=== PATIENT | female | born 1995 | race Caucasian/White ===

== ENCOUNTER → 2024-05-03 08:30 | Outpatient (BNV) | payer OTHER, SELFPAY | PROVIDERS: Visit Provider Psychiatry & Neurology Psychiatry | DX: F33.1 Major depressive disorder, recurrent, moderate (principal); F80.89 Other developmental disorders of speech and language; F81.9 Developmental disorder of scholastic skills, unspecified; F41.3 Other mixed anxiety disorders; F43.9 Reaction to severe stress, unspecified; R41.840 Attention and concentration deficit | CPT/HCPCS: 99214 ==

== ENCOUNTER 2024-05-03 08:37 | Outpatient (REF) | payer OTHER, SELFPAY ==
--- NOTE | 2024-05-03 08:43 | ECG_ITS ---
Test Reason : ROUTINE EKG Blood Pressure : / mmHG Vent. Rate : 063 BPM Atrial Rate : 063 BPM P-R Int : 170 ms QRS Dur : 092 ms QT Int : 394 ms P-R-T Axes : 052 111 049 degrees QTc Int : 403 ms Normal sinus rhythm Right axis deviation Abnormal ECG No previous ECGs available Referred By: Kierra Nova Electronically Signed By:BEVERLEY COSTELLO
[2024-05-03 09:06] LABS: MANUAL DIFF FLAG NO
[2024-05-03 09:09] LABS: Basophils Percent Auto 0.5 % (0-2); Eosinophils Absolute Auto 0.2 X10*3/uL (0.0-0.4); Eosinophils Percent Auto 3.3 % (0-4); Hemoglobin 12.6 g/dl (12.0-16.0); Imm Gran Abs Auto 0.02 X10*3/uL (0.00-0.03); Imm Gran Pct Auto 0.3 % (0.0-0.4); Lymphocytes Absolute Auto 1.3 X10*3/uL (1.2-4.9); Lymphocytes Percent Auto 22.8 % (20-40); Mean Corpuscular HGB Conc 32.3 g/dl (31.0-35.0); Mean Corpuscular Volume 80.4 fL (80.0-98.0); Mean Platelet Volume 10.2 fL (9.4-12.3); Monocytes Absolute Auto 0.6 X10*3/uL (0.1-1.2); Monocytes Percent Auto 9.8 % (2-11); Neutrophils Absolute Auto 3.7 x10*3/uL (2.0-8.3); Neutrophils Percent Auto 63.3 % (45-73); Platelet Count 249 X10*3/uL (160-400); Red Blood Count 4.85 X10*6/uL (4.20-5.50); Red Cell Distribution Width 14.7 % (11.0-16.0); White Blood Count 5.8 X10*3/uL (4.8-10.8)
[2024-05-03 09:34] LABS: Estimated Average Glucose 97 mg/dL; Hemoglobin A1C 99.4155 umol/L
[2024-05-03 09:37] LABS: Albumin Level 3.9 g/dL (3.5-5.0); Anion Gap 10 (12-20); Aspartate Amino Transferase 19 U/L (5-31); Bilirubin Total 0.4 mg/dL (0.0-1.0); Blood Urea Nitrogen 11 mg/dL (9-16); C Reactive Protein 3.35 mg/dL (< or = 0.50); Carbon Dioxide 27 mmol/L (22-29); Chloride 111 mmol/L (96-108); Cholesterol 158 mg/dL (<200); Estimated Glomerular Filt Rate > 60; Glucose Random 71 mg/dL (60-115); Iron 28 mcg/dL (30-160); Percent Iron Saturation 10 % (15-50); Potassium 3.4 mmol/L (3.3-5.1); Sodium 145 mmol/L (135-145); Total Iron Binding Capacity 278 mcg/dL (228-428); Total Protein 7.1 g/dL (6.5-8.0); Unsaturated Iron Binding 250 ug/dL
[2024-05-03 09:50] LABS: Ferritin 39 ng/mL (10-122); Free T4 (Free Thyroxine) 0.92 ng/dL (0.71-1.85); Thyroid Stimulating Hormone 2.08 uIU/mL (0.32-4.0); Vitamin D 25-OH Total 21.7 ng/mL (>30)
[2024-05-03 10:03] LABS: Erythrocyte Sedimentation Rate 18 MM/HR (0-20)
[2024-05-03 10:05] LABS: Folate 8.2 ng/mL (> or = 4.0); Vitamin B12 440 pg/mL (200-900)
[2024-05-03 10:16] LABS: Alanine Aminotransferase 18 U/L (0-31); Alkaline Phosphatase 71 U/L (39-117)
[2024-05-06 20:07] LABS: Homocysteine 9.4 umol/L (<10.4)
[2024-05-09 13:58] LABS: Vitamin B6 6.8 ng/mL (2.1-21.7)
[2024-05-10 16:49] LABS: Vitamin B1 11 nmol/L (8-30)
== END 2024-05-03 08:38 | disposition home or self-care (01) ==
LOC: HO.LAB 08:37
PROVIDERS: Visit Provider Psychiatry & Neurology Psychiatry
DX: F33.1 Major depressive disorder, recurrent, moderate (principal); F43.9 Reaction to severe stress, unspecified
CPT/HCPCS: 36415; 80053; 82306; 82465; 82607; 82728; 82746; 83036; 83090; 83540; 83735; 84207; 84425; 84439; 84443; 85025; 85652; 86140; 93005

== ENCOUNTER → 2024-05-03 08:43 | Outpatient (BNV) | payer OTHER, SELFPAY | PROVIDERS: Visit Provider Internal Medicine | DX: R94.31 Abnormal electrocardiogram [ECG] [EKG] (principal) | CPT/HCPCS: 93010 ==

== ENCOUNTER 2024-05-09 09:33 | Emergency (ER) | payer OTHER, SELFPAY ==
--- NOTE | ~2024-05-09 | XR_ITS ---
EXAMINATION: XR CHEST CLINICAL INFORMATION: cough COMPARISON: None available. TECHNIQUE: 2 views of the chest were obtained. FINDINGS: No significant abnormality is noted involving the heart, lungs, mediastinum, bony thorax or soft tissues. XR/XR chest 2V IMPRESSION: No acute cardiopulmonary disease. Electronically signed by: Donato Payne MD 05/09/2024 11:19 AM [facility] [place]
--- NOTE | 2024-05-09 09:42 | ECG_ITS ---
Test Reason : cp Blood Pressure : / mmHG Vent. Rate : 075 BPM Atrial Rate : 075 BPM P-R Int : 164 ms QRS Dur : 084 ms QT Int : 374 ms P-R-T Axes : 057 101 044 degrees QTc Int : 417 ms Normal sinus rhythm Rightward axis Borderline ECG When compared with ECG of 03-MAY-2024 08:44, No significant change was found Referred By: Generic ED Physician Electronically Signed By:Jose Qureshi
[2024-05-09 10:06] VITALS: BP 104/69; PULSE 71; RESP 16; TEMP 36.6; O2SAT 96; BMI 33.5
[2024-05-09 10:43] LABS: IDNOW Serial# 08D9AD1C; Strep A Nucleic Acid Negative (Negative)
--- NOTE | 2024-05-09 11:03 | ED.URI ---
HPI - URI/Sore Throat General Chief Complaint: Upper Respiratory Symptoms Stated Complaint: chest pain Time Seen by Provider: 05/09/24 10:34 Source: patient and RN notes reviewed Mode of arrival: ambulatory Limitations: no limitations History of Present Illness ED Provider: Masha Scott PA-C HPI Narrative: This is a 28-year-old female, with a history of develop mental speech delay, learning disability, ADHD, and MDD, who presents emergency department with complaints of sinus pain, cough, congestion, and chest pain x1 week. Patient states that over the last week, she has developed postnasal drip, congestion, dry cough, and chest pain which only occurs with cough. Patient denies any recent fevers or chills. She states that she had a sinus infection several months ago in symptoms feel similar. She denies any abdominal pain, nausea, vomiting or diarrhea. No shortness a breath or palpitations. No recent travel, surgeries, history of blood clots. She is not on control. She states that she was admitted psychiatrically in February, no other medical hospitalizations. No other complaints or concerns at this time. MD elicited complaint: cough, sore throat, rhinorrhea, nasal congestion and sinus pain Pertinent past history: sinusitis Onset (ago): week(s) Consistency: constant Severity: moderate Able to tolerate fluids by mouth: Yes Exacerbating factors: nothing Relieving factors: nothing Associated symptoms: nasal congestion, sore throat, cough and chest pain Treatments prior to arrival: none Related Data Home Medications ?Medication ?Instructions ?Recorded ?Confirmed albuterol sulfate 90 mcg/actuation 1 puff inhalation QID PRN sob 04/25/24 04/25/24 aerosol inhaler (Ventolin HFA) cetirizine 10 mg tablet (Zyrtec) 10 mg PO DAILY 04/25/24 04/25/24 propranolol 20 mg tablet 20 mg PO DAILY 04/25/24 04/25/24 sertraline 50 mg tablet 50 mg PO DAILY 04/25/24 04/25/24 Previous Rx's ?Medication ?Instructions ?Recorded methylphenidate HCl 5 mg tablet 5 mg PO QAM as directed #14 tabs 05/03/24 prazosin 1 mg capsule 1 mg PO BEDTIME as directed #14 05/03/24 caps amoxicillin 875 mg-potassium 1 tab PO BID 7 days #14 tabs 05/09/24 clavulanate 125 mg tablet Allergies Allergy/AdvReac Type Severity Reaction Status Date / Time No Known Allergies Allergy Verified 05/09/24 10:09 [No Known Allergies*] Review of Systems Review of Systems: Yes all other systems are reviewed and are negative Constitutional: Constitutional: Reports as per [facility] Past Medical History Medical History Astigmatism of eye Myopia of both eyes Speech disorder Learning disability Social History Social History Household Members: Family Patient Tobacco Use Status: Never used Tobacco Advance Directives: No Advance Directives Information Provided: No Physical Exam Vital Signs: Vital Signs: Last Vital Signs Temp 97.9 F 05/09/24 10:06 Pulse 71 05/09/24 10:06 Resp 16 05/09/24 10:06 BP 104/69 05/09/24 10:06 Pulse Ox 96 05/09/24 10:06 O2 Del Method Room Air 05/09/24 10:06 BMI result Body Mass Index 33.5 Const: General: cooperative, comfortable and no acute distress Orientation/consciousness: patient oriented x3 Limitations: no limitations HEENT: Other: Maxillary sinus tenderness on examination. No ethmoid, or frontal sinus tenderness. Head: Yes normal to inspection, Yes normocephalic and Yes atraumatic Ears: hearing grossly normal bilaterally and TM's normal bilaterally General nose exam: Normal external nose present Face and sinus: Yes normal facial exam Mouth: Normal oral and palatal mucosa present, oropharynx normal and moist mucous membranes Throat: Yes posterior oropharynx normal Eyes: General: appearance normal, both eyes and all related structures Eyelids: Yes eyelids normal Conjunctivae: conjunctivae normal Sclerae: sclerae normal Pupils: Equal, round and reactive pupils present EOM: EOMs intact bilaterally Neck: Neck: Yes normal visual inspection, Yes full ROM and Yes no lymphadenopathy Lymphatic: no lymphadenopathy noted Chest: Other: Reproducible chest wall tenderness on examination. Chest palpation & inspection: normal inspection of the chest Resp: Effort & Inspection: normal respiratory effort and able to speak in complete sentences Auscultation: clear to auscultation bilaterally, no crackles, no rales, no rhonchi and no wheezes Cardio: Rate: regular rate Rhythm: regular rhythm Heart sounds: S1 normal heart sound present and S2 normal heart sound present GI: Inspection: Yes normal to inspection Skin: General skin exam: no rashes or lesions noted Trauma: no lacerations or abrasions Wounds: no wounds Neuro: General: patient oriented x3 and moves all extremities Cranial nerves: Yes Equal, round and reactive pupils present Extrem: General: Yes normal to inspection Right upper extremity: normal to inspection Left upper extremity: normal to inspection Right lower extremity: normal to inspection Left lower extremity: normal to inspection Course Reevaluation(s) Reevaluation #1: Patient negative for RSV, COVID, flu, and strep throat. Chest x-ray unremarkable. Discussed findings with patient. She does have maxillary sinus tenderness on examination, symptoms have been longer than 1 week, will treat as a sinusitis. Patient stable for discharge. Given strict return precautions. Time: 11:27 Medical Decision Making Medical Decision Making [facility] Narrative: This is a 28-year-old female who presents emergency department with complaints of congestion, cough, sinus pain x1 week. On arrival, vital signs within normal limits. She is speaking full sentences under no acute distress. Lungs are clear to auscultation bilaterally. She has reproducible chest wall tenderness on examination. She is PERC negative. She is not hypoxic or tachycardic. She has tenderness palpation along her maxillary sinuses. Plan: Viral swabs, COVID, strep, EKG that was previously ordered by triage. Chest x-ray, Tylenol Differential Diagnosis Differential Diagnoses: The differential diagnosis associated with the presentation includes RSV, COVID, strep, influenza, sinusitis, pneumonia Admission/Observation Consideration of admission/observation: Escalation of care including admission/observation considered Lab Data [facility] Lab Attestation statement: I reviewed the patient's lab results. Negative COVID, flu, RSV, strep Labs: Lab Results 05/09/24 Range/Units 10:22 Influenza Type A (PCR) NEGATIVE (Negative) Influenza Type B (PCR) NEGATIVE (Negative) RSV RNA Qual (PCR) NEGATIVE (Negative) SARS-CoV-2 RNA (RT-PCR) NEGATIVE (Negative) S. pyogenes GrpA CHARLIE Negative (Negative) Radiology Impression Discussion of test interpretation with radiology: I have reviewed the radiologist's reading. Radiologist Impression: EKG normal sinus rhythm at a ventricular rate of 75 beats per minute, LA interval 164, QT QTC 374/foreign 17, no ST elevation or depression. Discharge Plan Discharge Clinical Impression: Sinusitis Patient Disposition: Home, Self-Care Instructions: Sinusitis (ED) Additional Instructions: You were seen in the emergency department due to congestion, cough. Your chest x-ray was normal. Your EKG was normal. You have evidence of a sinus infection, please take prescribed medication as directed. Finish the entire course even if your symptoms improve. Alternate between ibuprofen and Tylenol as needed for pain and symptoms. Drink plenty of fluids get plenty of rest. Follow-up with your primary care physician regarding this visit. If any new or worsening symptoms occur including but not limited to worsening chest pain, shortness of breath, please seek emergent care. Prescriptions: New amoxicillin-pot clavulanate 875-125 mg tablet 1 tab PO BID 7 Days Qty: 14 0RF No Action cetirizine [Zyrtec] 10 mg Tablet 10 mg PO DAILY Rx Instructions: Takes OTC albuterol sulfate [Ventolin HFA] 90 mcg/actuation Hfa Aerosol Inhaler 1 puff INHALATION QID PRN (Reason: sob) Rx Instructions: Last Filled November 2023 propranolol 20 mg Tablet 20 mg PO DAILY Rx Instructions: Last Filled 04/05/24. Increased from 10 mg daily. sertraline 50 mg Tablet 50 mg PO DAILY Rx Instructions: Last filled 04/05/24 #90. prazosin 1 mg capsule 1 mg PO BEDTIME Qty: 14 0RF methylphenidate HCl 5 mg tablet 5 mg PO QAM Qty: 14 0RF Rx Instructions: Partial Fill upon patient request. Print Language: Luxembourgish
[2024-05-09 11:09] LABS: Influenza A PCR NEGATIVE (Negative); Influenza B PCR NEGATIVE (Negative); Resp Syncy Virus RNA Qual PCR NEGATIVE (Negative); SARS COV2 PCR INHOUSE NEGATIVE (Negative)
[2024-05-09 11:50] VITALS: BP 104/69; PULSE 71; RESP 16; TEMP 36.6; O2SAT 96
== END 2024-05-09 11:50 | disposition home or self-care (01) ==
PROVIDERS: Emergency Provider Emergency Medicine; PCP Student in an Organized Health Care Education/Training Program
DX: J32.0 Chronic maxillary sinusitis (principal); R05.9 Cough, unspecified; J02.9 Acute pharyngitis, unspecified; R07.9 Chest pain, unspecified; Z03.818 Encounter for observation for suspected exposure to other biological agents ruled out
CPT/HCPCS: 0241U; 71046; 87651; 93005; 99283

== ENCOUNTER → 2024-05-09 09:42 | Outpatient (BNV) | payer OTHER, SELFPAY | PROVIDERS: Emergency Provider Emergency Medicine; PCP Student in an Organized Health Care Education/Training Program; Visit Provider Internal Medicine Cardiovascular Disease | DX: R94.31 Abnormal electrocardiogram [ECG] [EKG] (principal) | CPT/HCPCS: 93010 ==

== ENCOUNTER 2024-05-14 09:15 | Outpatient (RCR) | payer OTHER, SELFPAY ==
[2024-04-25 09:58] VITALS: BMI 33.0
[2024-04-25 10:00] VITALS: BP 88/66; TEMP 36.7
--- NOTE | 2024-04-25 16:59 | HO.PHP ---
Client's case was reviewed and opened in teams.
--- NOTE | 2024-04-25 21:51 | HO.PS.ADMBH ---
HPI Date of Service: 04/25/24 Chief Complaint: PTSD Sources of Information: patient interviewed, chart reviewed and crisis/core team assessment reviewed HPI Narrative: Patient is a 28 yo female with depression and anxiety. who was referred from Crisis. SHe reports recent IPLOC later followed by respite stay (which she found more helpful than being in the hospital). She was started on clonidine at respite which has been helping with sleep. 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 Learning disability Narrative: Micrognathia Diagnostics Vital Signs (24Hr): Vital Signs - 24 hr 04/25/24 10:00 Temperature 98.1 F Blood Pressure 88/66 L BMI result Body Mass Index 33.0 Meds/Allergies Meds Home Medications ?Medication ?Instructions ?Recorded ?Confirmed ?Type albuterol sulfate 90 mcg/actuation 1 puff inhalation QID PRN sob 04/25/24 04/25/24 History aerosol inhaler (Ventolin HFA) cetirizine 10 mg tablet (Zyrtec) 10 mg PO DAILY 04/25/24 04/25/24 History propranolol 20 mg tablet 20 mg PO DAILY 04/25/24 04/25/24 History Allergies Allergies Allergy/AdvReac Type Severity Reaction Status Date / Time No Known Allergies Allergy Verified 05/09/24 10:09 [No Known Allergies*] Mental Status Exam Mental Status Exam Narrative: MSEAlert, oriented, in no acute distress. Calm, cooperative, engaged. No psychomotor agitation or neurovegetative retardation. Eye contact maintained. Mood depressed, affect dysthymic, blunted without tearfulness or lability. Speech normal, soft, flat without slowing. Thought process linear, coherent, delay in some responses. Thought content related to stressors, +transient hopelessness, +passive SI, denies any intention, urge or plan to harm self. Denies any aggressive ideation or HI. No paranoia or delusional content elicited. No evidence of psychosis. Insight and judgment fair. Assessment & Plan Assessment & Plan (1) MDD (major depressive disorder), recurrent episode, moderate: Status: Acute Code(s): F33.1 - Major depressive disorder, recurrent, moderate (2) Developmental disorder of speech fluency: Status: Acute Code(s): F80.89 - Other developmental disorders of speech and language (3) Learning disability: Status: Acute Code(s): F81.9 - Developmental disorder of scholastic skills, unspecified (4) Other mixed anxiety disorders: Status: Acute Code(s): F41.3 - Other mixed anxiety disorders Assessment and Plan: generalized anxiety, social anxiety (5) Reaction to severe stress, unspecified: Status: Acute Code(s): F43.9 - Reaction to severe stress, unspecified Assessment and Plan: unspecified trauma and stressor-related disorder r/o PTSD (6) Attention and concentration deficit: Status: Acute Code(s): R41.840 - Attention and concentration deficit Assessment and Plan: r/o neurocognitive or developmental disorders (specifically ADHD-inattentive type) (7) Attention-deficit hyperactivity disorder, unspecified type: Status: Acute Code(s): F90.9 - Attention-deficit hyperactivity disorder, unspecified type Plan continue other regular medications? Routine lab work ordered as indicated EKG, routine for baseline QTc for medication considerations as indicated UDS as indicated MassPat reviewed Continue to monitor as per protocol Patient educated on: diagnosis and medication risk/benefits Informed Consent: understands Reason for continued partial hosp. stay Substantial Risk for: inability to function and med/psych decompensation Certification I certify that partial hospital treatment is medically necessary due to the symptoms and problems resulting from the patient's mental illness and the failure to treat the patient at the partial hospital level of care would likely result in the patient requiring inpatient psychiatric care which could not be prevented at a less intensive level of care. Time Spent With Patient Time: Total time managing care of this patient today __60__ minutes.
--- NOTE | 2024-04-30 14:52 | HO.PHP ---
At roughly 2:00pm pt reported to scientific technical writer that her bottle of Klonopin with 12 pills inside had been taken from her personal bag. Pt stated she was certain it was in her bag and reported she brought the bottle in to show the doctor which medications and doses she was taking. Pt stated she had not left the bag unattended except to get a bottle of water from the fridge but stated the bag was still in the same room on her chair several feet away her. Pt was worried and anxious over the missing medications, stated the Klonopin is for panic attacks and not daily. Pt reassured the team will be notified.
--- NOTE | 2024-05-03 12:25 | HO.PHPPROGNO ---
Subjective Subjective Date of Service: 05/03/24 Reason For Visit: PTSD Interim History: Patient seen for follow-up. I feel calm today SHe is not sure why it seems there are times she is anxious and sometimes not. Overall feeling stable emotionally and at psychiatric baseline. Nonethless she continues to report issues with articulating her thoughts, says her mind also races and makes it difficult to articulate her thoughts, in addition with speech problems. Returned dose of clonidine to 0.1 mg because 1/2 tablet was no helpl for sleep, whereas she is able to sleep on the whole tablet. However she is still finding clonidine 0.1 mg makes her feel dizzy upon waking or getting up and would like to try prazosin as we had previously as well as start low dose methylphenidate. Will see if it is any help for cognitive and organizing her thoughts better. She continues on propranolol 20 mg daily in AM. Will start vitamin d supplementation for deficiency (21.7) Medication Compliance: Yes Side effects from medications: Yes Attending Groups: Yes Review of Systems Acute medical concerns: No Mental Status Exam Mental Status Exam Narrative: Alert, oriented, in no acute distress. Calm, cooperative, engaged, pleasant. Eye contact intermitten. Mood anxious, less depressed, affect more range of affect, without tearfulness or lability. Speech some delays ntoed due to disruption in fluency Thought process linear, coherent. Thought content related to stressors, issues with attention/focus, denies any hopelessness or passive SI, denies any intention, urge or plan to harm self. Denies any aggressive ideation or HI. No paranoia or delusional content elicited. No evidence of psychosis. Insight and judgment fair-good. Diagnostics Vital Signs (24Hr): BMI result Body Mass Index 33.0 Assessment & Plan Assessment & Plan (1) MDD (major depressive disorder), recurrent episode, moderate: Status: Acute Code(s): F33.1 - Major depressive disorder, recurrent, moderate (2) Developmental disorder of speech fluency: Status: Acute Code(s): F80.89 - Other developmental disorders of speech and language (3) Learning disability: Status: Acute Code(s): F81.9 - Developmental disorder of scholastic skills, unspecified (4) Other mixed anxiety disorders: Status: Acute Code(s): F41.3 - Other mixed anxiety disorders Assessment and Plan: generalized anxiety, social anxiety (5) Reaction to severe stress, unspecified: Status: Acute Code(s): F43.9 - Reaction to severe stress, unspecified Assessment and Plan: unspecified trauma and stressor-related disorder r/o PTSD (6) Attention and concentration deficit: Status: Acute Code(s): R41.840 - Attention and concentration deficit Assessment and Plan: r/o neurocognitive or developmental disorders (specifically ADHD-inattentive type) Plan hold clonidine start prazosin 1 mg qhs start methylphenidate 2.5-5 mg qam as tolerated continue sertraline 50 mg qd continue propranolol 20 mg qam start vitamin D2 69528 IU qd continue other regular medications?- cetirizine Routine lab work reviewed: vitamin D 21.7 EKG, routine for baseline QTc for medication considerations as indicated UDS as indicated VS: on admission 04/25/24, BP 88/66 (on propranolol 20 mg qam/clonidine 0.1 mg qhs); Continue to monitor Patient educated on: diagnosis, medication risk/benefits and medical condition Informed Consent: understands Reason for contiued partial hosp. stay Substantial Risk for: inability to function and med/psych decompensation Certification I certify that partial hospital treatment is medically necessary due to the symptoms and problems resulting from the patient's mental illness and the failure to treat the patient at the partial hospital level of care would likely result in the patient requiring inpatient psychiatric care which could not be prevented at a less intensive level of care. Total time managing care of this patient today _30___ minutes. Discharge Plan Discharge Attending provider: Kierra Nova Medications: New prazosin 1 mg capsule 1 mg PO BEDTIME Qty: 14 0RF methylphenidate HCl 5 mg tablet 5 mg PO QAM Qty: 14 0RF Rx Instructions: Partial Fill upon patient request. Continued cetirizine [Zyrtec] 10 mg Tablet 10 mg PO DAILY Rx Instructions: Takes OTC albuterol sulfate [Ventolin HFA] 90 mcg/actuation Hfa Aerosol Inhaler 1 puff INHALATION QID PRN (Reason: sob) Rx Instructions: Last Filled November 2023 propranolol 20 mg Tablet 20 mg PO DAILY Rx Instructions: Last Filled 04/05/24. Increased from 10 mg daily. sertraline 50 mg Tablet 50 mg PO DAILY Rx Instructions: Last filled 04/05/24 #90. Discontinued clonidine HCl 0.1 mg Tablet 0.1 mg PO BEDTIME Rx Instructions: Patient stated she started Clonidine in Respite. Print Language: Japanese
--- NOTE | 2024-05-09 09:41 | PC.NURSE ---
Najma c/o chest pain rated an 8 on a scale of 1-10 with 10 being the highest. She was crying d/t c/o chest pain. Reports she has been having chest pain for hours. VS BP 116/80 P 80. She denied it radiating. She also c/o having a sinus infection. Patient agreed to go to the ER for evaluation. Patient escorted to the ER without incident.
--- NOTE | 2024-05-10 23:59 | HO.PHPPROGNO ---
Subjective Subjective Date of Service: 05/10/24 Reason For Visit: PTSD Interim History: Patient seen for follow up. Went to ED yesterday, feeling unwell, has been prescribed antibiotic for sinus infection which she was unable to curing [employer] yesterday bc she is without a car/ride. She plans to get a ride to curing [employer] packer the medication after program and start on today. She is feeling a little better since taking some ibuprofen. Denies any chills or fever. 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 Aside from illness, mood has been more stable, anxiety better. Has been doing better with the prazosin, is better tolerated thatn HS clonidine which was making her wake-up dizzy. She denies any lightheadedness or adverse effects from HS prazosin 1 mg. She continues on propranolol 20 mg qam which she feels works well. BP runs low, but is asymptomatic. Hopefully will tolerate and benefit from addition of low dose IR stimulant in the AM, but advised to hold off starting until she is feeling better, and should focus on recovering from sinus infection, getting rest, staying hydrated in the meantime. Mood is stable, anxiety situational, recently noticing more anxiety as she approaches return to work date, she requests RTW date 05/21. SHe has a training module that needs to be completed which can be difficult to complete in a timely manner citing LD and speech d/o. Anticipitory anxiety about returning to work and feeling conflicted about returning especially bc my employer has not been very supportive in genereal (eg work accommodations, time off for PHP, etc) Endorses transient SIB thoughts, but says they are just thoughts and has no plan, or intent to harm self. Denies any SI. No HI . [place] paperwork was completed and sent in. Patient requested work letters, which were provided and sent to administrative staff to be printed up on letterhead and given to patient. Medication Compliance: Yes (except was unable to get to pharmacy to curing pickling packer new med) Side effects from medications: No Attending Groups: Yes Review of Systems Acute medical concerns: No Medical Review of Systems: changed Review of Systems: sinus infection Mental Status Exam Mental Status Exam Narrative: Alert, oriented, in no acute distress. Calm, cooperative, engaged, pleasant. Eye contact intermitten. Mood anxious, less depressed, affect more range of affect, without tearfulness or lability. Speech some delays ntoed due to disruption in fluency Thought process linear, coherent. Thought content related to stressors, issues with attention/focus, vague, transient SIB thoughts attributed to increased anticipitory stress about returning to work and feeling unsupported and overwhelmed in that environment. Denies any hopelessness or passive SI, denies any intention, urge or plan to harm self. Denies any aggressive ideation or HI. No paranoia or delusional content elicited. No evidence of psychosis. Insight and judgment fair-good. Diagnostics Vital Signs (24Hr): BMI result Body Mass Index 33.0 Assessment & Plan Assessment & Plan (1) MDD (major depressive disorder), recurrent episode, moderate: Status: Acute Code(s): F33.1 - Major depressive disorder, recurrent, moderate (2) Developmental disorder of speech fluency: Status: Acute Code(s): F80.89 - Other developmental disorders of speech and language (3) Learning disability: Status: Acute Code(s): F81.9 - Developmental disorder of scholastic skills, unspecified (4) Other mixed anxiety disorders: Status: Acute Code(s): F41.3 - Other mixed anxiety disorders Assessment and Plan: generalized anxiety, social anxiety (5) Reaction to severe stress, unspecified: Status: Acute Code(s): F43.9 - Reaction to severe stress, unspecified Assessment and Plan: unspecified trauma and stressor-related disorder r/o PTSD (6) Attention and concentration deficit: Status: Acute Code(s): R41.840 - Attention and concentration deficit Assessment and Plan: r/o neurocognitive or developmental disorders (specifically ADHD-inattentive type) Plan continue prazosin 1 mg qhs hold off start methylphenidate 2.5-5 mg qam until feeling better continue sertraline 50 mg qd continue propranolol 20 mg qam continue vitamin D2 03484 IU qd continue other regular medications?- cetirizine Discontinued: clonidine, Routine lab work reviewed: vitamin D 21.7 EKG, routine for baseline QTc for medication considerations as indicated [facility] paperwork completed, patient provided with requested letters confirming participation in PHP and Return to Work letter Continue to monitor Patient educated on: diagnosis and medication risk/benefits Informed Consent: understands Certification I certify that partial hospital treatment is medically necessary due to the symptoms and problems resulting from the patient's mental illness and the failure to treat the patient at the partial hospital level of care would likely result in the patient requiring inpatient psychiatric care which could not be prevented at a less intensive level of care. Total time managing care of this patient today _50___ minutes. Discharge Plan Discharge Attending provider: Kierra Nova Medications: New prazosin 1 mg capsule 1 mg PO BEDTIME Qty: 14 0RF methylphenidate HCl 5 mg tablet 5 mg PO QAM Qty: 14 0RF Rx Instructions: Partial Fill upon patient request. Continued cetirizine [Zyrtec] 10 mg Tablet 10 mg PO DAILY Rx Instructions: Takes OTC albuterol sulfate [Ventolin HFA] 90 mcg/actuation Hfa Aerosol Inhaler 1 puff INHALATION QID PRN (Reason: sob) Rx Instructions: Last Filled November 2023 propranolol 20 mg Tablet 20 mg PO DAILY Rx Instructions: Last Filled 04/05/24. Increased from 10 mg daily. sertraline 50 mg Tablet 50 mg PO DAILY Rx Instructions: Last filled 04/05/24 #90. amoxicillin-pot clavulanate 875-125 mg tablet 1 tab PO BID 7 Days Qty: 14 0RF Discontinued clonidine HCl 0.1 mg Tablet 0.1 mg PO BEDTIME Rx Instructions: Patient stated she started Clonidine in Respite. Print Language: Polish
--- NOTE | 2024-05-13 12:59 | P.PNPSP_ITS ---
Subjective Subjective Date of Service: 05/13/24 Reason For Visit: PTSD Mental Status Exam Mental Status Exam Narrative: Alert, oriented, in no acute distress. Calm, cooperative, engaged, pleasant. Eye contact intermitten. Mood anxious, less depressed, affect more range of affect, without tearfulness or lability. Speech some delays ntoed due to disruption in fluency Thought process linear, coherent. Thought content related to stressors, issues with attention/focus, vague, transient SIB thoughts attributed to increased anticipitory stress about returning to work and feeling unsupported and overwhelmed in that environment. Denies any hopelessness or passive SI, denies any intention, urge or plan to harm self. Denies any aggressive ideation or HI. No paranoia or delusional content elicited. No evidence of psychosis. Insight and judgment fair-good. Diagnostics Vital Signs (24Hr): BMI result Body Mass Index 33.0 Assessment & Plan Assessment & Plan (1) MDD (major depressive disorder), recurrent episode, moderate: Status: Acute Code(s): F33.1 - Major depressive disorder, recurrent, moderate (2) Developmental disorder of speech fluency: Status: Acute Code(s): F80.89 - Other developmental disorders of speech and language (3) Learning disability: Status: Acute Code(s): F81.9 - Developmental disorder of scholastic skills, unspecified (4) Other mixed anxiety disorders: Status: Acute Code(s): F41.3 - Other mixed anxiety disorders Assessment and Plan: generalized anxiety, social anxiety (5) Reaction to severe stress, unspecified: Status: Acute Code(s): F43.9 - Reaction to severe stress, unspecified Assessment and Plan: unspecified trauma and stressor-related disorder r/o PTSD (6) Attention-deficit hyperactivity disorder, unspecified type: Status: Acute Code(s): F90.9 - Attention-deficit hyperactivity disorder, unspecified type Plan start methylphenidate 5 mg qam (start 1/2 - 1 tablet) as tolerated increase sertraline to 75 mg qd continue propranolol 20 mg qam continue prazosin 1 mg qhs continue vitamin D2 00197 IU qd continue other regular medications?- cetirizine Discontinued: clonidine, Routine lab work reviewed: vitamin D 21.7 EKG, routine for baseline QTc for medication considerations as indicated [place] paperwork completed, patient provided with requested letters confirming participation in PHP and Return to Work letter Continue to monitor Patient educated on: diagnosis and medication risk/benefits Informed Consent: understands Reason for contiued partial hosp. stay Substantial Risk for: inability to function, rapid decompensation and med/psych decompensation Certification I certify that partial hospital treatment is medically necessary due to the symptoms and problems resulting from the patient's mental illness and the failure to treat the patient at the partial hospital level of care would likely result in the patient requiring inpatient psychiatric care which could not be prevented at a less intensive level of care. Total time managing care of this patient today _30___ minutes. Discharge Plan Discharge Attending provider: Kierra Nova Medications: New prazosin 1 mg capsule 1 mg PO BEDTIME Qty: 14 0RF Continued cetirizine [Zyrtec] 10 mg Tablet 10 mg PO DAILY Rx Instructions: Takes OTC albuterol sulfate [Ventolin HFA] 90 mcg/actuation Hfa Aerosol Inhaler 1 puff INHALATION QID PRN (Reason: sob) Rx Instructions: Last Filled November 2023 propranolol 20 mg Tablet 20 mg PO DAILY Rx Instructions: Last Filled 04/05/24. Increased from 10 mg daily. methylphenidate HCl 5 mg tablet 5 mg PO QAM Qty: 30 0RF Rx Instructions: Partial Fill upon patient request. amoxicillin-pot clavulanate 875-125 mg tablet 1 tab PO BID 7 Days Qty: 14 0RF Changed sertraline 50 mg Tablet 75 mg PO DAILY Qty: 15 0RF Rx Instructions: *Dose change* Discontinued clonidine HCl 0.1 mg Tablet 0.1 mg PO BEDTIME Rx Instructions: Patient stated she started Clonidine in Respite. Print Language: Telugu
--- NOTE | 2024-05-13 16:25 | HO.PHP ---
PHP staff member followed up with Najma due to her not being clear around SI when meeting with the provider. PHP staff member explored with Najma what was occurring today, in which she shared that she is struggling with negative thoughts and self-loathing due to flashbacks and intrusive memories from when she was bullied. PHP staff member assessed if this is a contributing factor to her stating she is having suicidal thoughts. Najma voiced that she is not having suicidal thoughts but she is having self-harming thoughts without a plan or intent. PHP staff member explored when Najma last engaged in cutting behaviors. Najma noted that it has been a month. PHP staff member praised Najma. Najma also disclosed that her mother has the sharps locked away and she has no access to them. PHP staff member asked Najma if she has found any coping skills to be helpful. Najma reported that keeping her hands busy and coloring has been a helpful tool. After program, Najma plans to write a [employer] song. Najma disclosed no safety concerns today and will be in attendance to program tomorrow.
--- NOTE | 2024-05-14 14:51 | P.PNPSP_ITS ---
Subjective Subjective Date of Service: 05/14/24 Reason For Visit: PTSD Diagnostics Vital Signs (24Hr): BMI result Body Mass Index 33.0 Assessment & Plan Certification I certify that partial hospital treatment is medically necessary due to the symptoms and problems resulting from the patient's mental illness and the failure to treat the patient at the partial hospital level of care would likely result in the patient requiring inpatient psychiatric care which could not be prevented at a less intensive level of care. Total time managing care of this patient today ____ minutes. Discharge Plan Discharge Attending provider: Kierra Nova Medications: Continued cetirizine [Zyrtec] 10 mg Tablet 10 mg PO DAILY Rx Instructions: Takes OTC albuterol sulfate [Ventolin HFA] 90 mcg/actuation Hfa Aerosol Inhaler 1 puff INHALATION QID PRN (Reason: sob) Rx Instructions: Last Filled November 2023 propranolol 20 mg Tablet 20 mg PO DAILY Rx Instructions: Last Filled 04/05/24. Increased from 10 mg daily. methylphenidate HCl 5 mg tablet 5 mg PO QAM Qty: 30 0RF Rx Instructions: Partial Fill upon patient request. prazosin 1 mg capsule 1 mg PO BEDTIME Qty: 14 0RF amoxicillin-pot clavulanate 875-125 mg tablet 1 tab PO BID 7 Days Qty: 14 0RF Changed sertraline 50 mg Tablet 75 mg PO DAILY Qty: 15 0RF Rx Instructions: *Dose change* Discontinued clonidine HCl 0.1 mg Tablet 0.1 mg PO BEDTIME Rx Instructions: Patient stated she started Clonidine in Respite. Stand Alone Forms: Patient Portal Discharge page Print Language: Irish
== END 2024-05-14 23:59 | disposition home or self-care (01) ==
LOC: HO.PHPA 09:15
PROVIDERS: Visit Provider Psychiatry & Neurology Psychiatry
DX: F33.1 Major depressive disorder, recurrent, moderate (principal); F80.89 Other developmental disorders of speech and language; F81.9 Developmental disorder of scholastic skills, unspecified; F41.3 Other mixed anxiety disorders; F43.9 Reaction to severe stress, unspecified; F40.10 Social phobia, unspecified; F90.9 Attention-deficit hyperactivity disorder, unspecified type; Z79.899 Other long term (current) drug therapy
CPT/HCPCS: 90791; 90853